=== PATIENT | male | born 1970 | race Asian ===

== ENCOUNTER 2016-09-10 05:26 | Emergency (ER) | payer MEDICAID ==
[~2016-09-10] VITALS: Ht 165.1 cm; Wt 68.0 kg
[2016-09-10 05:26] VITALS: BP_SYST 150
--- NOTE | 2016-09-10 05:26 | NUR ---
Placed in room 6. Placed on sandblaster stone, blood pressure machine and pulse oximeter. Side rails up.
--- NOTE | 2016-09-10 05:28 | NUR ---
Patient alert and oriented x 4. BIB via BLS with a complaint of right upper quadrant pain radiating to the back which started yesterday morning. Pain scale 7/10. Pt speaks Mandarin only, nephew at bedside as machine i trimmer. Denies nausea, vomiting, diarrhea or fever. No acute distress or SOB noted.
--- NOTE | 2016-09-10 05:31 | NUR ---
ER Dr. Medina at bedside examining patient.
[2016-09-10] MEDS ORDERED: ONDANSETRON HCL 4 MG/2 ML VIAL IVP ONE (05:45)
[2016-09-10] MEDS ORDERED: MAG HYDROX/AL HYDROX/SIMETH 30 ML, BELLADONNA ALKALOIDS/PHENOBARB 10 ML, LIDOCAINE VISC... PO ONE ×3 (05:45)
[2016-09-10] MEDS ORDERED: KETOROLAC TROMETHAMINE 30 MG VIAL IVP ONE ×2 (05:45→07:00)
[2016-09-10] MEDS ORDERED: BELLADONNA ALKALOIDS/PHENOBARB 5 ML UDC ONE (05:47)
[2016-09-10] MEDS ORDERED: MAG-AL HYDROX/SIMETH 30 ML UDC ONE (05:47)
[2016-09-10 06:27] LABS: BASOPHILS # (AUTO) 0.1 K/uL (0.0-0.2); BASOPHILS % (AUTO) 0.9 % (0.0-2.0); EOSINOPHILS # (AUTO) 0.3 K/uL (0.0-0.4); EOSINOPHILS % (AUTO) 4.4 % (0.0-4.0); HEMATOCRIT 43.1 % (36-54); HEMOGLOBIN 14.7 g/dL (14.0-18.0); LYMPHOCYTES # (AUTO) 1.8 K/uL (1.0-5.5); LYMPHOCYTES % (AUTO) 22.9 % (20.5-51.5); MEAN CORPUSCULAR HEMOGLOBIN 31 pg (27-31); MEAN CORPUSCULAR HGB CONC 34 % (32-36); MEAN CORPUSCULAR VOLUME 90 fL (79.0-98.0); MONOCYTES # (AUTO) 0.5 K/uL (0.0-1.0); MONOCYTES % (AUTO) 6.1 % (1.7-9.3); NEUTROPHILS # (AUTO) 5.1 K/uL (1.8-7.7); NEUTROPHILS % (AUTO) 65.7 % (40.0-70.0); PLATELET COUNT (AUTO) 227 K/uL (130-430); RED BLOOD CELL COUNT(AUTO) 4.82 MIL/uL (4.2-6.2); RED CELL DISTRIBUTION WIDTH 12.4 % (9.0-15.0); WHITE BLOOD COUNT (AUTO) 7.8 K/uL (4.8-10.8)
[2016-09-10 06:57] LABS: CALCIUM 8.5 mg/dL (8.4-11.0); CREATININE 0.98 mg/dL (0.55-1.30); POTASSIUM 3.1 mmol/L (3.5-5.1)
[2016-09-10 07:01] LABS: ALBUMIN 4.1 g/dL (3.4-4.8); TOTAL BILIRUBIN 0.3 mg/dL (0.0-1.0); TOTAL PROTEIN, SERUM 7.2 g/dL (6.4-8.3)
--- NOTE | 2016-09-10 07:10 | NUR ---
Pt and Pt's nephew at the bedside. Updated Pt on the plan of care. Pain medication was adminstered by bucky RN. Currently awaiting lab results
[2016-09-10 07:37] VITALS: BP_SYST 134
--- NOTE | 2016-09-10 07:37 | NUR ---
Patient given written and verbal discharge instructions and verbalizes understanding. ER MD discussed with patient the results and treatment provided. Given copies of tests performed in ER. Patient in stable condition. ID arm band removed. IV catheter removed intact and dressing applied, no active bleeding. Rx of Mylanta 10 cc every 4 hours as needed for pain and Pepcid 20 mg b.i.d. as needed for pain given. Patient educated on pain management and to follow up with PMD. Pain Scale 0/10. Opportunity for questions provided and answered.
== END 2016-09-10 07:37 | disposition home or self-care (01) ==
LOC: SED 05:26
DX: R10.11 Right upper quadrant pain (principal)
CPT/HCPCS: 36415; 80053; 83690; 85025; 96374; 96375; 96376; 99284; J1885; J2405

== ENCOUNTER 2016-11-28 01:11 | Emergency (ER) | payer MEDICAID ==
[~2016-11-28] VITALS: Ht 165.1 cm; Wt 59.0 kg
[2016-11-28 01:30] VITALS: BP_SYST 130
--- NOTE | 2016-11-28 01:30 | NUR ---
Patient to ER bed 8 to gown for evaluation. Side rails up.
--- NOTE | 2016-11-28 01:40 | NUR ---
PT IN BED 8 WITH C/O UPPER ABDOMINAL PAIN WITH NAUSEA , DR JONES AWARE.
--- NOTE | 2016-11-28 02:09 | NUR ---
ER at bedside examining patient.
[2016-11-28] MEDS ORDERED: BELLADONNA ALKALOIDS/PHENOBARB 5 ML UDC PO ONE (02:15)
[2016-11-28] MEDS ORDERED: LIDOCAINE VISCOUS 2%, 15 ML UDC MM ONE (02:15)
[2016-11-28] MEDS ORDERED: MAG-AL HYDROX/SIMETH 30 ML UDC PO ONE (02:15)
--- NOTE | 2016-11-28 02:21 | NUR ---
MEDICATION GIVEN PER MD ORDERS
[2016-11-28] MEDS ORDERED: PANTOPRAZOLE SODIUM 40 MG TAB PO ONE (03:00)
[2016-11-28] MEDS ORDERED: KETOROLAC TROMETHAMINE 60 MG/2 ML VIAL IM ONE (03:00)
[2016-11-28 03:54] VITALS: BP_SYST 118
--- NOTE | 2016-11-28 03:54 | NUR ---
Patient given written and verbal discharge instructions and verbalizes understanding. ER MD discussed with patient the results and treatment provided. Patient in stable condition. ID arm band removed. Rx of Omeprazole [address] and Maalox given. Patient educated on pain management and to follow up with PMD. Pain Scale 3/10. Opportunity for questions provided and answered.
--- NOTE | 2016-11-28 19:54 | NUR ---
OPENING NOTES PATIENT IS A/OX4. VITAL SIGNS ARE STABLE. NO SIGNS OF DISTRESS. BREATHING IS NON LABORED. PATIENT IS ON 2L OF OXYGEN NASAL CANNULA. PATIENT IS COMPLAINING OF NAUSEA. WILL INFORM MD. CALL LIGHT IS WITHIN REACH. BED ALARM IS ON. WILL CONTINUE TO MONITOR.
== END 2016-11-28 03:54 | disposition home or self-care (01) ==
LOC: SED 01:11
DX: K29.00 Acute gastritis without bleeding (principal); R03.0 Elevated blood-pressure reading, without diagnosis of hypertension; R51 Headache
CPT/HCPCS: 96372; 99284; J1885; J2001

== ENCOUNTER 2017-02-15 01:30 | Emergency (ER) | payer MEDICAID ==
[~2017-02-15] VITALS: Ht 139.7 cm; Wt 61.2 kg
[2017-02-15 01:44] VITALS: BP_SYST 130
[2017-02-15] MEDS ORDERED: NACL 0.9% 1,000 ML IV ONE (03:12)
[2017-02-15] MEDS ORDERED: ONDANSETRON HCL 4 MG/2 ML VIAL IVP ONE (03:15)
[2017-02-15] MEDS ORDERED: KETOROLAC TROMETHAMINE 30 MG VIAL IVP ONE (03:15)
[2017-02-15 03:33] LABS: BILIRUBIN,URINE NEGATIVE (NEGATIVE); BLOOD, URINE NEGATIVE (NEGATIVE); CLARITY/URINE CLEAR (CLEAR); COLOR,URINE YELLOW (YELLOW); GLUCOSE,URINE NEGATIVE (NEGATIVE); KETONES,URINE NEGATIVE (NEGATIVE); LEUKOCYTE ESTERASE ,URINE NEGATIVE (NEGATIVE); NITRITE, URINE NEGATIVE (NEGATIVE); PROTEIN URINE NEGATIVE (NEGATIVE); UROBILINOGEN,URINE 0.2 (0.2-1.0)
[2017-02-15 03:38] LABS: CALCIUM 8.8 mg/dL (8.4-11.0); CREATININE 1.34 mg/dL (0.55-1.30); POTASSIUM 3.7 mmol/L (3.5-5.1)
[2017-02-15 03:44] LABS: ALBUMIN 4.2 g/dL (3.4-4.8); TOTAL BILIRUBIN 0.5 mg/dL (0.0-1.0)
[2017-02-15 03:48] LABS: BASOPHILS % (AUTO) 0.1 % (0.0-2.0); EOSINOPHILS # (AUTO) 0.4 K/uL (0.0-0.4); EOSINOPHILS % (AUTO) 3.7 % (0.0-4.0); HEMOGLOBIN 14.3 g/dL (14.0-18.0); LYMPHOCYTES # (AUTO) 1.8 K/uL (1.0-5.5); LYMPHOCYTES % (AUTO) 16.2 % (20.5-51.5); MEAN CORPUSCULAR HEMOGLOBIN 30 pg (27-31); MEAN CORPUSCULAR HGB CONC 33 % (32-36); MEAN CORPUSCULAR VOLUME 91 fL (79.0-98.0); MONOCYTES # (AUTO) 0.7 K/uL (0.0-1.0); MONOCYTES % (AUTO) 6.4 % (1.7-9.3); NEUTROPHILS % (AUTO) 73.6 % (40.0-70.0); PLATELET COUNT (AUTO) 252 K/uL (130-430); RED BLOOD CELL COUNT(AUTO) 4.74 MIL/uL (4.2-6.2); RED CELL DISTRIBUTION WIDTH 12.7 % (9.0-15.0); WHITE BLOOD COUNT (AUTO) 10.9 K/uL (4.8-10.8)
[2017-02-15] MEDS ORDERED: MORPHINE 4 MG/ML INJ. SYRINGE IVP ONE (04:30)
[2017-02-15 06:52] VITALS: BP_SYST 125
== END 2017-02-15 06:52 | disposition home or self-care (01) ==
LOC: SED 01:30
DX: R10.31 Right lower quadrant pain (principal); R11.0 Nausea
CPT/HCPCS: 36415; 74176; 76700; 80053; 81003; 83690; 85025; 96361; 96374; 96375; 99285; J1885; J2270; J2405; J7030